=== PATIENT | male | born 1970 | race Caucasian/White ===

== ENCOUNTER 2024-07-22 15:07 | Emergency (ER) | payer SELFPAY ==
[~2024-07-22] VITALS: Ht 170.2 cm; Wt 110.0 kg
[2024-07-22 15:13] VITALS: TEMP 98.3; O2SAT 95
[2024-07-22 16:49] LABS: HEMATOCRIT. 37.5 % (42.0-52.0); HEMOGLOBIN. 12.8 g/dL (14.0-18.0); MEAN CORPUSCULAR HEMOGLOBIN 31.8 pg (28.0-32.0); MEAN CORPUSCULAR VOLUME 93.6 fL (80.0-94.0); PLATELET 269 x1000/uL (130-400); RED BLOOD CELL COUNT 4.01 mill/uL (4.7-6.1); RED CELL DISTRIBUTION WIDTH 12.5 % (11.6-14.6); WHITE BLOOD COUNT 9.6 x1000/uL (4.5-11.0)
[2024-07-22 16:52] LABS: DIFFERENTIAL COMMENT 1
[2024-07-22 16:54] LABS: CHLORIDE 105 mEq/L (98-107); POTASSIUM 4.4 mEq/L (3.5-5.1); SODIUM 137 mEq/L (136-145)
[2024-07-22 16:55] LABS: CARBON DIOXIDE 26 mEq/L (21-32)
[2024-07-22 16:56] LABS: CALCIUM 9.8 mg/dL (8.7-10.4)
[2024-07-22 17:00] LABS: CREATININE 0.6 mg/dL (0.6-1.3)
[2024-07-22 17:01] LABS: GLUCOSE 208 mg/dL (70-105); UREA NITROGEN BLOOD 14 mg/dL (9-23)
[2024-07-22 17:02] LABS: ALANINE AMINOTRANSFERASE 22 IU/L (10-49); ALBUMIN 4.5 g/dL (3.2-4.8); ASPARTATE AMINOTRANSFERASE 20 IU/L (<34); LACTIC ACID 2.2 mmol/L (0.4-2.0)
[2024-07-22 17:03] LABS: BILIRUBIN DIRECT < 0.1 mg/dL (<=3.0); BILIRUBIN TOTAL 0.3 mg/dL (0.1-1.0); TROPONIN I HIGH SENSITIVITY < 4 ng/L (3.0-53)
[2024-07-22 18:11] LABS: PLATELET ESTIMATE NORMAL
[2024-07-22 19:20] VITALS: BP 135/78; PULSE 94; RESP 18
[2024-07-22] MEDS: MORPHINE SULFATE 4 MG/ML INJ (FOR IV/IM USE) IV NR (19:20)
[2024-07-22 21:06] LABS: CLARITY URINE CLEAR (CLEAR); COLOR URINE YELLOW (YELLOW); GLUCOSE URINE 1+ (NEGATIVE); KETONES URINE NEGATIVE (NEGATIVE); LEUKOCYTE ESTERASE URINE NEGATIVE (NEGATIVE); NITRITE URINE NEGATIVE (NEGATIVE); OCCULT BLOOD URINE NEGATIVE (NEGATIVE); PH URINE 5.5 (4.5-8.0); PROTEIN URINE NEGATIVE (NEGATIVE); SPECIFIC GRAVITY URINE 1.084 (1.005-1.030)
[2024-07-22 21:21] LABS: BACTERIA URINE NONE SEEN; RBC URINE NONE SEEN /hpf (0-2); SQUAMOUS EPITHELIAL CELL URINE FEW /lpf (RARE/1+); WBC URINE 0-2 /hpf (0-2)
[2024-07-22] MEDS: ACETAMINOPHEN 1000MG/100ML 100 ML IV ONE (21:27)
[2024-07-22] MEDS: KETOROLAC 30MG/ML VIAL IV ONE (21:31)
[2024-07-23] MEDS ORDERED: IOHEXOL-300 100 ML BOTTLE ONE (02:22)
== END 2024-07-22 22:30 ==
LOC: EDBD 15:07 → ER 15:07
DX: K40.20 Bilateral inguinal hernia, without obstruction or gangrene, not specified as recurrent (principal); K74.60 Unspecified cirrhosis of liver; I10 Essential (primary) hypertension; E11.9 Type 2 diabetes mellitus without complications
CPT/HCPCS: 80076; 80048; 81003; 83605; 83690; 85025; 86850; 86900; 86901; 84484; 36415; 74177; 96365; 96375; 99285; Q9967; J2270; Z7610 ×3; J0131